=== PATIENT | female | born 1945 | race Caucasian/White ===

== ENCOUNTER 2017-01-09 11:04 | Outpatient (CLI) | payer OTHER, MEDICARE ==
--- NOTE | 2017-01-09 13:08 | DIAGNOSTIC IMAGING REPORT ---
PROCEDURE: US BILATERAL CAROTID DOPPLER INDICATION: LEFT CAROTID BRUIT TECHNIQUE: Color Doppler duplex imaging of the carotid and vertebral vessels. COMPARISON: None. FINDINGS: Tortuous ICA 's but no evidence of plaque formation. Right common carotid artery peak systolic velocity 77 cm/second. Right internal carotid artery peak systolic velocity 125 cm/second. Right external carotid artery peak systolic velocity 68 cm/second. Right btetgmtm-zp-hogkhm carotid artery ratio 1.6 Right vertebral artery peak systolic velocity 86 cm/second antegrade. Left common carotid artery peak systolic velocity 85 cm/second. Left internal carotid artery peak systolic velocity 137 cm/second. Left external carotid artery peak systolic velocity 79 cm/second. Left yxjelccc-pa-fkoyxj carotid artery ratio 1.6 Left vertebral artery peak systolic velocity 53 cm/second antegrade. IMPRESSION: 1. Tortuous ICA's but no evidence of plaque formation. 2. Velocities suggest right ICA 16-49% stenosis and left ICA 50-79% stenosis. Velocity criteria are extrapolated from diameter data as defined by the Society of [employer]ologists in Ultrasound Consensus Conference, Radiology 2003; 229; 340-346.
--- NOTE | 2017-01-09 13:08 | DIAGNOSTIC IMAGING REPORT ---
PROCEDURE: US BILATERAL CAROTID DOPPLER INDICATION: LEFT CAROTID BRUIT TECHNIQUE: Color Doppler duplex imaging of the carotid and vertebral vessels. COMPARISON: None. FINDINGS: Tortuous ICA 's but no evidence of plaque formation. Right common carotid artery peak systolic velocity 77 cm/second. Right internal carotid artery peak systolic velocity 125 cm/second. Right external carotid artery peak systolic velocity 68 cm/second. Right kwsuqlnc-ix-ogxygt carotid artery ratio 1.6 Right vertebral artery peak systolic velocity 86 cm/second antegrade. Left common carotid artery peak systolic velocity 85 cm/second. Left internal carotid artery peak systolic velocity 137 cm/second. Left external carotid artery peak systolic velocity 79 cm/second. Left duefpacy-eo-toeyjw carotid artery ratio 1.6 Left vertebral artery peak systolic velocity 53 cm/second antegrade. IMPRESSION: 1. Tortuous ICA's but no evidence of plaque formation. 2. Velocities suggest right ICA 16-49% stenosis and left ICA 50-79% stenosis. Velocity criteria are extrapolated from diameter data as defined by the [employer] of [employer]iologists in Ultrasound Consensus Conference, Radiology 2003; 229; 340-346.
== END 2017-01-09 23:00 | disposition home or self-care (01) ==
LOC: US SRH 11:04
DX: I65.22 Occlusion and stenosis of left carotid artery (principal)